=== PATIENT | male | born 1955 | race Caucasian/White ===

== ENCOUNTER 2024-04-25 10:20 | Emergency (ER) | payer OTHER, SELFPAY ==
[2024-04-25 10:56] VITALS: BP 154/84
[2024-04-25 11:22] LABS: % Basophils 0.7 % (0-2); % Eosinophils 2.1 % (0-6); % Immature Granulocytes 0.3 % (0-0.5); % Lymphocytes 16.9 % (20.5-51.1); % Monocytes 11.6 % (1.7-9.3); % Neutrophils 68.4 % (42.2-75.2); Absolute Basophils 0.1 10^3/uL (0-0.2); Absolute Eosinophils 0.2 10^3/uL (0-0.7); Absolute Lymphocytes 1.2 10^3/uL (1.2-3.4); Absolute Monocytes 0.8 10^3/uL (0.1-0.6); Absolute Neutrophils 4.8 10^3/uL (1.4-6.5); Hematocrit 45.6 % (39.0-52.0); Hemoglobin 15.7 g/dL (13.0-18.0); Mean Corp Hgb Conc. 34.4 g/dL (33.0-37.0); Mean Corpuscular Hgb 30.9 pg (27.0-31.0); Mean Corpuscular Volume 89.8 fL (80.0-94.0); Mean Platelet Volume 9.9 fL (7.4-10.4); Nucleated Red Blood Cells % 0 % (-); Platelet Count 262 10^3/uL (130-400); Red Blood Cell Count 5.08 10^6/uL (4.70-6.10); Red Cell Dist. Width 12.2 % (11.5-14.5)
[2024-04-25 11:31] LABS: ALT (SGPT) 35 U/L (0-50); AST (SGOT) 30 U/L (17-59); Albumin 4.5 g/dl (3.5-5.0); Alkaline Phosphatase 103 U/L (38-126); Blood Urea Nitrogen 12 mg/dl (9-20); Calcium 9.1 mg/dl (8.4-10.2); Carbon Dioxide 31 mmol/L (22-30); Chloride 99 mmol/L (98-107); Glucose 111 mg/dl (70-99); Potassium 3.8 mmol/L (3.5-5.1); Sodium 138 mmol/L (135-145); Total Bilirubin 1.6 mg/dl (0.2-1.3); Total Protein 6.8 g/dl (6.3-8.2); eGFR > 60.00
[2024-04-25 11:34] LABS: APTT 26.9 Sec (23.4-35.0); INR 0.93
--- NOTE | 2024-04-25 11:48 | ED.MUSCINJ ---
HPI-Injury
General
Chief Complaint: Fall
Source: patient
Exam Limitations: none
Time Seen by Provider: 04/25/24 11:33
Nursing documentation reviewed up to this point in time: agreed with
History of Present Illness-Injury
Initial Injury comments:
68-year-old male with history of HTN, HLD, BPH, kidney stones [place] 3 [place] and stumbled on the escalator, fell forward impacting the left upper chest on the escalator.
He presents for pain in the area and pain with deep breathing. He has taken ibuprofen with no relief.
Past History
Past History
ED Past Medical History: HTN and Hypercholesterolemia
ED Past Surgical History: Orthopedic and Other
Social History
Tobacco: Former smoker
Alcohol: Occasional
Personal:
Living: with family
Employment: Employed
Review of Systems
Review of Systems
Allergies reviewed?: Yes
All Other Systems: ROS reviewed and negative except as documented in HPI and ROS
Constitutional: Denies fever
Respiratory: Denies cough or trouble breathing
Cardiac: Reports chest pain (Left upper chest wall pain at site of impact)
ABD/GI: Denies abdominal pain, nausea or vomiting
: Denies dysuria or difficulty voiding
Musculoskeletal: Denies edema, neck pain or back pain
Skin: Reports other (Linear square abrasions across left upper chest consistent with impact on escalator stairs)
Neurological: Reports no symptoms
Phy Exam
Physical Exam
Physical Exam:
GENERAL: No acute distress. A&Ox3.
CONSTITUTIONAL: Afebrile.
EYES: clear, conjunctivae normal
ENMT: moist mucus membranes, Pharynx nl
RESPIRATORY: Regular respirations, nonlabored, lungs clear.
CARDIOVASCULAR: Regular rate and rhythm, no murmurs, no rubs.
GI: Soft, nontender, normal BS
MUSCULOSKELETAL: Neck and back nontender. Moves with ease. Well perfused.
SKIN: Warm, dry, pink. linear small square deep clean scabbed abrasions upper left chest wall, mild swelling at the area. Very tender here.
PSYCH: Normal mood and affect. Well kept, interactive and appropriate
NEUROLOGIC: Awake, alert and oriented. No focal neurological deficits
Injury Course
Orders/Labs/Results
Orders:
Orders
04/25/24 11:02
Electrocardiogram (*1) Urgent
Reason for Study: Chest Pain
CT Chest With Iv Contrast Urgent
Comment:
Reason For Exam: fall on sternum, concern for fx
EKG- Treatment ONCE
04/25/24 11:12
Complete Blood Count/With Diff Urgent
Comprehensive Metabolic Panel Urgent
PTT Urgent
Prothrombin Time Urgent
Troponin I Urgent
Abnormal Lab Results
04/25/24
11:12
Absolute Monos (auto) 0.8 H 10^3/uL
(0.1-0.6)
Lymphocytes % 16.9 L %
(20.5-51.1)
Monocytes % 11.6 H %
(1.7-9.3)
Carbon Dioxide 31 H mmol/L
(22-30)
Glucose 111 H mg/dl
(70-99)
Total Bilirubin 1.6 H mg/dl
(0.2-1.3)
04/25/24 11:12
04/25/24 11:12
MDM/Problems Addressed
Differential Diagnosis Includes:
Rib fracture, hemo-/pneumothorax, chest wall contusion/abrasion
MDM/Problems Addressed:
68-year-old male with history of HTN, HLD, BPH, kidney stones states he was [place] a casino 3 days ago and stumbled on the escalator, fell forward impacting the left upper chest on the escalator.
He presents for pain in the area and pain with deep breathing. He has taken ibuprofen with no relief.
Afebrile, NAD clear breath sounds throughout
EKG sinus bradycardia
CBC normal
CMP with no clinically significant abnormality
Troponin normal
2:[address] radiology report reviewed: IMPRESSION:
Subtle horizontal lucency involving the inferior anterior cortical margin of the sternal manubrium, suspicious for a subtle transverse nondisplaced fracture. Please correlate with localized symptoms. This appears to be new since prior CT of November
2020.
No evidence for fracture of the sternal body.
There is no evidence for mediastinal hematoma. There is no evidence for sternoclavicular dislocation. There is no dislocation of the sternomanubrial articulation.
Mild atelectasis in the lower lungs. There is no evidence of pneumothorax or pleural effusion.
Dilation of the mid ascending aorta, short axis diameter 4.3 cm, without significant interval change from examination of November 18, 2020. Consider continued follow-up.
Nondisplaced sternal fx 3 days old, no retrosternal hematoma, no hypoxemia, respirations non labored, stable for discharge
*EKG
EKG Intrepretation Date: 04/25/24
Interpretation: abnormal
Heart Rate: 53
Rate: bradycardiac
Rhythm: sinus
[place]: normal axis
Interval: normal interval
QRS Pattern: normal QRS
Ischemia: no ischemia
*Critical Care Note
Total Time (30-74mins, 75-104mins- exclusive of procedures): Not Applicable
ED Attending Note
-
Portions of this chart may have been created with voice recognition software.� Occasional wrong word or��sound alike� substitutions may have occurred due to the inherent limitations of voice recognition software.
Discharge Plan
Departure
Patient Disposition: Home (Routine Discharge)
Date of Disposition: 04/25/24
Time of Disposition: 14:26
Patient with high blood pressure during this ER visit?: No
Condition: Good
Discharge Problem:
Fall from slip, trip, or stumble, Fracture of sternum
Instructions: Sternal Fracture (DC)
Prescriptions:
No Action
simvastatin 40 MG tablet
40 mg PO QPM
multivitamin with folic acid [Tab-A-Vince] 1 TABLET tablet
1 tab PO DAILY
cyanocobalamin (vitamin B-12) [Vitamin B-12] 1,000 mcg Tablet
1,000 mcg PO DAILY
bisoprolol-hydrochlorothiazide 5-6.25 mg Tablet
1 tab PO BID
aspirin 81 mg Tablet,Delayed Release (Dr/Ec)
81 mg PO DAILY
lansoprazole 30 mg Capsule,Delayed Release(Dr/Ec)
30 mg PO PRN PRN (Reason: GERD)
mupirocin 2 % ointment
1 applic topical BID Qty: 1 0RF
Referrals:
Harshad Ng MD [Family Provider] - As needed
Activity Restrictions/Additional Instructions:
As we discussed, you have a tiny fracture of the breast bone. Nothing worrisome on the rest of the CT scan.
Tylneol or Ibuprofen as needed for pain
Avoid lifting more than 5 lbs or any activity that aggravates the pain.
Interventions
Interventions:
*Risk Screen - Suicide Last Done: 04/25/24 10:56
*General Assessment Last Done: 04/25/24 10:56
*Neglect/Abuse Screening Last Done: 04/25/24 10:56
ED- Fall Risk Assessment Last Done: 04/25/24 11:39
*Nursing Disposition Last Done: 04/25/24 14:44
ED-Musculoskeletal Assessment Last Done: 04/25/24 11:40
ED- Neurological Assessment Last Done: 04/25/24 11:39
ED-Skin Assessment Last Done: 04/25/24 11:40
Discharge Date and Time
Discharge Date/Time: 04/25/24 14:44
Print Language: MALAY
[2024-04-25 12:27] LABS: Troponin I < 0.012 ng/ml
[2024-04-25 13:17] VITALS: BP 138/76
== END 2024-04-25 14:44 | disposition home or self-care (01) ==
LOC: EMR 10:20
PROVIDERS: Physician Assistant; EMERGENCY PHYSICIAN Student in an Organized Health Care Education/Training Program; FAMILY PHYSICIAN Family Medicine
DX: S22.20XA Unspecified fracture of sternum, initial encounter for closed fracture (principal); W01.0XXA Fall on same level from slipping, tripping and stumbling without subsequent striking against object, initial encounter; E78.00 Pure hypercholesterolemia, unspecified; I10 Essential (primary) hypertension; N40.0 Benign prostatic hyperplasia without lower urinary tract symptoms; Z87.442 Personal history of urinary calculi; Z87.891 Personal history of nicotine dependence
CPT/HCPCS: 99284; 71260; 80053; 84484; 85025; 85610; 85730; 93005; Q9967

== ENCOUNTER 2024-05-30 06:20 | Day surgery (SDC) | payer OTHER, SELFPAY | END 2024-05-30 12:07 | disposition home or self-care (01) | LOC: GI 06:20 | PROVIDERS: ATTENDING PHYSICIAN Student in an Organized Health Care Education/Training Program | DX: Z12.11 Encounter for screening for malignant neoplasm of colon (principal); D12.0 Benign neoplasm of cecum; D12.2 Benign neoplasm of ascending colon; D12.3 Benign neoplasm of transverse colon; D12.4 Benign neoplasm of descending colon; K57.30 Diverticulosis of large intestine without perforation or abscess without bleeding; Z86.0101 Personal history of adenomatous and serrated colon polyps | CPT/HCPCS: 45385; 88305 ==

== ENCOUNTER 2024-12-06 06:22 | Day surgery (SDC) | payer OTHER, SELFPAY | END 2024-12-06 09:44 | disposition home or self-care (01) | LOC: GI 06:22 | PROVIDERS: ATTENDING PHYSICIAN Student in an Organized Health Care Education/Training Program | DX: Z12.11 Encounter for screening for malignant neoplasm of colon (principal); D12.0 Benign neoplasm of cecum; D12.3 Benign neoplasm of transverse colon; K57.30 Diverticulosis of large intestine without perforation or abscess without bleeding; K62.1 Rectal polyp; Z98.890 Other specified postprocedural states; Z86.0101 Personal history of adenomatous and serrated colon polyps | CPT/HCPCS: 45385; 45380; 88305 ==